=== PATIENT | female | born 1950 | race Caucasian/White ===

== ENCOUNTER 2016-11-10 21:53 | Emergency (ER) | payer OTHER ==
[2016-11-10 21:58] VITALS: BP 135/81; PULSE 71; TEMP 98.6; BMI 26.2
--- NOTE | 2016-11-10 22:22 | PDOC ---
History of Present Illness - General Chief Complaint: Bite Stated Complaint: CAT BITE R HAND Time Seen by Provider: 11/10/16 21:56 - History of Present Illness Initial Comments: This otherwise healthy 66-year-old presents with a several hour history of right hand cat bite. Patient states that she was bitten by her own cat (which is up-to-date on immunizations) a few hours prior to presentation when the cat was hungry and dinner was delayed. Minimal bleeding from the puncture wound on the dorsum of her right hand. Over the last few hours, the area has become mildly swollen, more painful and area of redness has increased. No fever/ chills or red streaking. No previous history of infected cat bites or other skin infection. No history of poor wound healing or resistant organism colonization/infection. No known medication ALLERGIES On no medications Past History - Past Medical History Allergies/Adverse Reactions: Allergies Allergy/AdvReac Type Severity Reaction Status Date / Time No Known Allergies Allergy Verified 04/16/11 08:51 Home Medications: Ambulatory Orders Amox-Tr/K Cl [Augmentin - 875Mg Tablet] 1 tab PO BID #10 tablet 11/10/16 Anemia: No Asthma: No Cancer: No Cardiac Disorders: No CVA: No COPD: No CHF: No Dementia: No Diabetes: No GI Disorders: No Disorders: No HTN: No Hypercholesterolemia: No Liver Disease: No Seizures: No Thyroid Disease: No - Surgical History Abdominal Surgery: No Appendectomy: No Cardiac Surgery: No Cholecystectomy: No Lung Surgery: No Neurologic Surgery: No Orthopedic Surgery: No - Immunization History Td Vaccination: Yes Immunization Up to Date: Yes - Psycho/Social/Smoking Cessation Hx Anxiety: No Suicidal Ideation: No Smoking Status: No Smoking History: Unknown if ever smoked Have you smoked in the past 12 months: No Number of Cigarettes Smoked Daily: 0 Information on smoking cessation initiated: No Hx Alcohol Use: No Drug/Substance Use Hx: No Substance Use Type: None Hx Substance Use Treatment: No Review of Systems - Review of Systems Able to Perform ROS?: Yes Comments:: 12 point review of systems is negative except for what is noted in the history of present illness *Physical Exam - Vital Signs Last Vital Signs Temp Pulse Resp BP Pulse Ox 98.6 F 71 14 135/81 98 11/10/16 21:54 11/10/16 21:54 11/10/16 21:54 11/10/16 21:54 11/10/16 21:54 - Physical Exam Comments: GENERAL: Adult female, alert and oriented 3, in no acute distress HEAD: Normal with no signs of trauma. EYES: PERRLA, EOMI, sclera anicteric, conjunctiva clear. ENT: Ears normal, nares patent, oropharynx clear without exudates. Dry mucous membranes. NECK: Normal range of motion, supple without lymphadenopathy, JVD, or masses. LUNGS: Breath sounds equal, clear to auscultation bilaterally. No wheezes, and no crackles. HEART:Regular rate and rhythm, normal S1 and S2 without murmur, rub or gallop. ABDOMEN:.normal bowel sounds No guarding,tenderness or rebound.No masses No distention. EXTREMITIES: Right upper extremity Dorsal aspect hand:2.5 cm diameter erythematous, mildly edematous, mildly tender area surrounding central puncture wound No lymphangitic streaking /no pain on active or passive motion of fingers NEUROLOGICAL: Cranial nerves II through XII grossly intact. Normal speech. No focal neurological deficits. MUSCULOSKELETAL: Back non-tender to palpation, no CVA tenderness Progress Note - Progress Note Progress Note: Clinical presentation most consistent with early cellulitis right hand secondary to cat bite. Patient has no known ALLERGIES and will be started on Augmentin 875/125 twice a day. First dose will be given here in the emergency room. Patient advised to take Augmentin with meals. She should return to the emergency room if she has worsening pain/swelling/ redness or noted any red streaking up her arm. Also, the patient develops fever /chills, she should return to the ER. She should follow-up with within the next week. *DC/Admit/Observation/Transfer Diagnosis at time of Disposition: Cat bite of hand Qualifiers: Encounter type: initial encounter Laterality: right Qualified Code(s): S61.451A - Open bite of right hand, initial encounter - Discharge Dispostion Disposition: HOME Condition at time of disposition: Stable - Prescriptions Prescriptions: Amox-Tr/K Cl [Augmentin - 875Mg Tablet] 1 tab PO BID #10 tablet - Referrals Referrals: Douglas Kelley MD [Primary Care Provider] - - Patient Instructions Printed Discharge Instructions: DI for Cat Bite Additional Instructions: Augmentin 875/125 twice a day for 5 days (take with food) Return to ER if you have worsening swelling/redness/pain or develop fever Follow-up with Dr. Kelley within the next week
[2016-11-10] MEDS ORDERED: AMOX TR/POT CLAV 875MG/125MG TABLETS (FP) PO ONE (22:33)
[2016-11-10] MEDS ORDERED: AMOX TR/POT CLAV 875MG/125MG TABLETS (FP) ONE (22:36)
== END 2016-11-10 22:39 | disposition home or self-care (01) ==
LOC: FER 21:53
DX: S61.451A Open bite of right hand, initial encounter (principal); W55.01XA Bitten by cat, initial encounter; Y93.9 Activity, unspecified; Y92.009 Unspecified place in unspecified non-institutional (private) residence as the place of occurrence of the external cause
CPT/HCPCS: 99282-25

== ENCOUNTER 2019-01-05 11:37 | Emergency (ER) | payer OTHER ==
--- NOTE | 2019-01-05 12:04 | PDOC ---
History of Present Illness - General History Source: Patient Exam Limitations: No Limitations - History of Present Illness Initial Comments: 68 year old female with PMH mitral valve prolapse presented to ED for right ankle pain/swelling/deformity s/p fall down 7 steps today. Pt reported that she was walking down a 14 stair flight of steps, when she misstepped, lost her footing, and fell down 7 stairs, until she hit the bottom stair directly on her bottom. She denied ability to bear weight or ambulate s/p event. She denied numbness, tingling, weakness, head injury, LOC, vomiting, chest pain, shortness of breath, abdominal pain, neck pain, back pain, upper extremity pain. She admitted to mild right hip pain, but reported most of her pain is in her ankle. Pt denied history of orthopedic surgery in the RLE. Pt reported last meal was 0900 today. PCP: [facility]: [place] <Lu Richards - Last Filed: 01/06/19 09:37> <Mary Celaya - Last Filed: 01/06/19 09:57> - General Chief Complaint: Injury Stated Complaint: ANKLE INJURY Time Seen by Provider: 01/05/19 12:04 Past History - Immunization History Td Vaccination: Yes Immunization Up to Date: Yes - Psycho Social/Smoking Cessation Hx Smoking Status: No Smoking History: Unknown if ever smoked Have you smoked in the past 12 months: No Number of Cigarettes Smoked Daily: 0 Hx Alcohol Use: No Drug/Substance Use Hx: No Substance Use Type: None Hx Substance Use Treatment: No <Lu Richards - Last Filed: 01/06/19 09:37> <Mary Celaya - Last Filed: 01/06/19 09:57> - Past Medical History Allergies/Adverse Reactions: Allergies Allergy/AdvReac Type Severity Reaction Status Date / Time No Known Allergies Allergy Verified 04/16/11 08:51 Home Medications: Ambulatory Orders Oxycodone HCl 10 mg PO QID PRN #12 tablet MDD 4 01/05/19 Review of Systems - Review of Systems Able to Perform ROS?: Yes Comments:: ROS General: denied fever, chills, generalized weakness. HEENT: denied sore throat, rhinorrhea, ear pain. Cardiovascular: denied chest pain, palpitations, syncope, diaphoresis. Respiratory: denied shortness of breath, cough, sputum production, hemoptysis. Gastrointestinal: denied abdominal pain, nausea, vomiting, diarrhea, constipation, blood in stool. Genitourinary: denied dysuria, increased urinary frequency, hematuria, urinary incontinence, flank pain. Back: denied back pain. Musculoskeletal: admitted to ankle pain, ankle swelling. denied muscle pain. Neurological: denied headache, dizziness, numbness, tingling, weakness. Integumentary: denied rash, laceration, abrasion. Hematologic/Lymphatic: denied bruising or bleeding. PE Constitutional: Well-nourished, Well-developed, appearing stated age. Airway: intact Breathing: bilateral breath sounds Circulation: 2+ carotid pulse B/L HEENT: head is normocephalic, atraumatic. No facial bones tenderness to palpation. No ramos sign. No raccoon eyes. EOMI. PERRLA. Neck: supple. Full ROM. no midline c-spine tenderness to palpation. No step offs. Cardiovascular: regular heart rhythm. no murmurs. no pericardial friction rub. Chest wall: no seatbelt sign. No tenderness to palpation of anterior chest wall. No deformity to anterior chest wall. Respiratory: clear to auscultation bilaterally. no crackles, rhonchi or wheezing. no stridor. Gastrointestinal: soft, nontender. normal bowel sounds. no rebound, guarding, masses. No ecchymoses. Back: no midline T-spine or L-spine tenderness to palpation. No step offs. Pelvis: No hip tenderness to palpation. RLE held in external rotation. Severe tenderness to palpation of right medial malleolus. 2+ DSP bilaterally. swelling and deformity noted to right ankle. Extremities: peripheral pulses intact. no lower extremity edema. Neurological: CN 2-12 grossly intact. moves all four extremities. Psych: awake, alert, oriented x3. follows commands. answers questions appropriately. <Lu Richards - Last Filed: 01/06/19 09:37> *Physical Exam - Vital Signs Last Vital Signs Temp Pulse Resp BP Pulse Ox 98.7 F 80 18 136/74 99 01/05/19 19:24 01/05/19 19:24 01/05/19 19:24 01/05/19 19:24 01/05/19 19:24 <Mary Celaya - Last Filed: 01/06/19 09:57> Procedures - Splinting Splint Location: Right: Ankle Pre-Proc Neuro Vasc Exam: normal Hand-Made Type: orthoglass Splint Type: Yes: Posterior (and U-splint) Post-Proc Neuro Vasc Exam: normal Ricardo Bandage: yes Sling: No Complications: No Post splint xray: Yes Good repositioning: Yes <Lu Richards - Last Filed: 01/06/19 09:37> ED Treatment Course - LABORATORY CBC & Chemistry Diagram: 01/05/19 12:19 01/05/19 12:19 <Lu Richards - Last Filed: 01/06/19 09:37> - LABORATORY CBC & Chemistry Diagram: 01/05/19 12:19 01/05/19 12:19 - ADDITIONAL ORDERS Additional order review: 01/05/19 12:19 RBC 4.58 MCV 86.4 MCHC 32.7 RDW 13.6 MPV 8.2 Neutrophils % 75.8 Lymphocytes % 15.1 Monocytes % 7.5 Eosinophils % 1.2 Basophils % 0.4 - Medications Given in the ED: ED Medications Discontinued Medications Generic Name Dose Route Start Last Admin Trade Name Darynq PRN Reason Stop Dose Admin Hydromorphone HCl 1 mg 01/05/19 14:08 01/05/19 14:37 Dilaudid Injection - IVPUSH 01/05/19 14:09 1 mg ONCE ONE Administration Hydromorphone HCl 1 mg 01/05/19 15:41 01/05/19 16:27 Dilaudid Injection - IVPUSH 01/05/19 15:42 Not Given ONCE ONE Hydromorphone HCl 1 mg 01/05/19 17:09 01/05/19 17:11 Dilaudid Injection - IVPUSH 01/05/19 17:10 1 mg ONCE ONE Administration Sodium Chloride 1,000 mls @ 1,000 mls/hr 01/05/19 12:13 01/05/19 12:29 Normal Saline - IV 01/05/19 13:12 1,000 mls/hr ASDIR STA Administration Lidocaine HCl 100 mg 01/05/19 15:39 01/05/19 17:07 Xylocaine 2% SQ 01/05/19 15:40 100 mg ONCE ONE Administration Morphine Sulfate 4 mg 01/05/19 12:10 01/05/19 12:25 Morphine Injection - IVPUSH 01/05/19 12:11 4 mg ONCE ONE Administration Ondansetron HCl 4 mg 01/05/19 19:18 01/05/19 19:23 Zofran Injection IVPUSH 01/05/19 19:19 4 mg ONCE ONE Administration <Mary Celaya - Last Filed: 01/06/19 09:57> Medical Decision Making - Medical Decision Making 68 year old female with above PMH presented to ED for right ankle and right hip pain s/p fall down 7 stairs. Initial Vital Signs Temp Pulse Resp BP Pulse Ox 98.2 F 88 19 153/89 99 01/05/19 12:04 01/05/19 12:04 01/05/19 12:04 01/05/19 12:04 01/05/19 12:04 Afebrile. No tachycardia. No tachypnea. Hypertensive. No hypoxia on room air. Labs ordered: CBC, CMP, T&S, coags, UA/UC Imaging ordered: CXR, pelvis XR, right knee XR, right tib/fib XR, right ankle XR , right femur XR Medications ordered: morphine 4 mg IV once, normal saline bolus 1000 cc once EKG performed at 1210: rate 77, regular rhythm, normal intervals, no acute ST changes. 01/05/19 13:02 CMP Sodium 138 mmol/L (136-145) 01/05/19 12:19 Potassium 4.6 mmol/L (3.5-5.1) 01/05/19 12:19 Chloride 104 mmol/L (98-107) 01/05/19 12:19 Carbon Dioxide 29 mmol/L (21-32) 01/05/19 12:19 Anion Gap 5 MMOL/L (8-16) L 01/05/19 12:19 BUN 14.0 mg/dL (7-18) 01/05/19 12:19 Creatinine 0.6 mg/dL (0.55-1.3) 01/05/19 12:19 Est GFR (CKD-EPI)AfAm 109.31 01/05/19 12:19 Est GFR (CKD-EPI)NonAf 94.32 01/05/19 12:19 Random Glucose 106 mg/dL (74-106) 01/05/19 12:19 Calcium 9.0 mg/dL (8.5-10.1) 01/05/19 12:19 Total Bilirubin 0.2 mg/dL (0.2-1) 01/05/19 12:19 AST 20 U/L (15-37) 01/05/19 12:19 ALT 31 U/L (13-61) 01/05/19 12:19 Alkaline Phosphatase 124 U/L (45-117) H 01/05/19 12:19 Total Protein 7.1 g/dl (6.4-8.2) 01/05/19 12:19 Albumin 3.6 g/dl (3.4-5.0) 01/05/19 12:19 No electrolyte abnormalities. No SHASHI. No transaminitis. 01/05/19 13:07 CBC WBC 15.5 K/mm3 (4.0-10.0) H 01/05/19 12:19 RBC 4.58 M/mm3 (3.60-5.2) 01/05/19 12:19 Hgb 13.0 GM/dL (10.7-15.3) 01/05/19 12:19 Hct 39.6 % (32.4-45.2) 01/05/19 12:19 MCV 86.4 fl (80-96) 01/05/19 12:19 MCH 28.3 pg (25.7-33.7) 01/05/19 12:19 MCHC 32.7 g/dl (32.0-36.0) 01/05/19 12: RDW 13.6 % (11.6-15.6) 01/05/19 12:19 Plt Count 364 K/MM3 (134-434) 01/05/19 12:19 MPV 8.2 fl (7.5-11.1) 01/05/19 12:19 Absolute Neuts (auto) 11.8 K/mm3 (1.5-8.0) H 01/05/19 12:19 Neutrophils % 75.8 % (42.8-82.8) 01/05/19 12:19 Lymphocytes % 15.1 % (8-40) 01/05/19 12:19 Monocytes % 7.5 % (3.8-10.2) 01/05/19 12:19 Eosinophils % 1.2 % (0-4.5) 01/05/19 12:19 Basophils % 0.4 % (0-2.0) 01/05/19 12:19 Nucleated RBC % 0 % (0-0) 01/05/19 12:19 Leukocytosis with left shift. -Pt denied any history of cough, dysuria, fever, vomiting, diarrhea, rhinorrhea , congestion No anemia. 01/05/19 13:13 XR shows right distal fibula fracture. -Pending official reports Dr. Hoover/[facility] office paged. 01/05/19 13:27 Dr. Hoover recommended reduction, reported he has surgery in 1 hour, will call back to report on if Dr. Bradshaw will be able to come sooner. Pt informed of results and need for orthopedic consultation. She reported understanding and agreed with plan for care. Pt refused cole catheter, reported she prefers to sit on a bed rodriguez. 01/05/19 13:32 Official Right Femur XR report: Name: [facility] DEPARTMENT OF RADIOLOGY Phys : Lu Richards RESIDENT : 1950 Age: 68 Sex: F [facility] Acct: [id number] Loc: [address] Exam Date: 01/05/19 Status: [place] [address] Unit Number: [id number] ACCESSION # : [id number] EXAM#: TYPE/EXAM: RESULT: [id number] RAD/PELVIS 1108- 0067 RAD/FEMUR-RIGHT Status post fall. Single AP of the pelvis. Right femur 2 views. No acute bony abnormalities are seen. Symmetrical articulation of the hip joints. Normal bony trabecular pattern is seen in proximal femur bilaterally. Symmetrical SI joints. No evidence of widening of the symphysis pubis. L4-L5 disc space narrowing. Impression. The visual osseous structures appear intact, no acute bony abnormalities are seen.. Reported By: Zane Heredia MD 01/05/19 1321 Official CXR report: Name: [facility] DEPARTMENT OF RADIOLOGY Phys: Lu Richards RESIDENT : 1950 Age: 68 Sex: F [facility] Acct: [id number] Loc: [address] Exam Date: 01/05/19 Status: [place] [address] Unit Number: [id number] EXAM#: TYPE/EXAM: RESULT: [id number] RAD/CHEST PA LAT Status post fall. Single semierect AP view of the chest compared with December 15, 2010. No evidence of widening of the superior mediastinum. Mildly uncoiled thoracic aorta. The cardiac silhouette is not enlarged. Elevated right diaphragm. The lungs are well aerated without evidence of a pulmonary infiltrates, atelectasis. No evidence of blunting of the costophrenic angles. No pneumothorax, or large pleural effusion is seen. Intact visualized osseous structures. No evidence of bulky hilar adenopathy. Impression. No evidence of active pulmonary disease. Reported By: Zane Heredia MD 01/05/19 1325 Official pelvis report: Name: [facility] DEPARTMENT OF RADIOLOGY Phys: Lu Richards RESIDENT : 1950 Age: 68 Sex: F [facility] Acct: [id number] Loc: [facility] [address] [place] [address] Exam Date: 01/05/19 Status: [facility] [place] [address] Unit Number: [id number] EXAM#: TYPE/EXAM: RESULT: [id number] RAD/PELVIS [id number] RAD/FEMUR- RIGHT Status post fall. Single AP of the pelvis. Right femur 2 views. No acute bony abnormalities are seen. Symmetrical articulation of the hip joints. Normal bony trabecular pattern is seen in proximal femur bilaterally. Symmetrical SI joints. No evidence of widening of the symphysis pubis. L4-L5 disc space narrowing. Impression. The visual osseous structures appear intact, no acute bony abnormalities are seen.. Reported By: Zane Heredia MD 01/05/19 1321 Official Right Knee XR report: Name: [facility] DEPARTMENT OF RADIOLOGY Phys: Lu Richards RESIDENT : 1950 Age: 68 Sex: F [facility] Acct: [id number] Loc: [address] Exam Date: 01/05/19 Status: [place] [address] Unit Number: [id number] ACCESSION # : [id number] EXAM#: TYPE/EXAM: RESULT: [id number] RAD/KNEE 3 POS-RIGHT Status post fall. Single oblique x-ray of the right knee. The visual osseous structures appear intact. No acute fracture is seen within limitation of examination. Reported By: Zane Heredia MD 01/05/19 1323 01/05/19 14:20 Dr. Hoover reported he is still awaiting call back from Dr. Bradshaw. Pt reported increasing pain. Medications ordered: Dilaudid 1 mg IV once 01/05/19 14:54 Urine Test Results Urine Color Yellow 01/05/19 14:29 Urine Appearance Clear 01/05/19 14:29 Urine pH 6.5 (5.0-8.0) 01/05/19 14:29 Ur Specific Dunlap 1.020 (1.010-1.035) 01/05/19 14:29 Urine Protein Negative (NEGATIVE) 01/05/19 14:29 Urine Glucose (UA) Negative (NEGATIVE) 01/05/19 14:29 Urine Ketones Negative (NEGATIVE) 01/05/19 14:29 Urine Blood Negative (NEGATIVE) 01/05/19 14:29 Urine Nitrite Negative (NEGATIVE) 01/05/19 14:29 Urine Bilirubin Negative (NEGATIVE) 01/05/19 14:29 Ur Leukocyte Esterase 1+ (NEGATIVE) H 01/05/19 14:29 WBC 6 Asymptomatic No UTI 01/05/19 16:14 Oumou Medina in ED, pt refused to have PA reduce her joint. PA is contacting Dr. Bradshaw. 01/05/19 17:24 After being informed she will need to wait for either surgeon to become available and the likelihood of a successful reduction decreases with time, pt now is willing to have ankle reduced by PA. 01/05/19 17:43 Ankle reduced by PA after intrarticular lidocaine block - without complications , pt tolerated procedure well. Pt placed in posterior leg splint and U-splint by PA and myself - see procedure note. Pt given crutches and education for use of crutches. Post-reduction films ordered. Pt to follow up in Office [facility], non-weightbearing. Pt reported she would like to take ibuprofen, but will take a few oxycodones for if she may need them in the night. 01/05/19 18:54 Post-reduction films seen by Ortho, who recommended discharge. Pt ambulated well with crutches. Pt discharged. <Lu Richards - Last Filed: 01/06/19 09:37> Discharge - Discharge Information Problems reviewed: Yes - Admission No <Lu Richards - Last Filed: 01/06/19 09:37> <Mary Celaya - Last Filed: 01/06/19 09:57> - Discharge Information Clinical Impression/Diagnosis: Fracture of distal end of fibula Condition: Improved Disposition: HOME - Additional Discharge Information Prescriptions: Oxycodone HCl 10 mg PO QID PRN #12 tablet MDD 4 PRN Reason: Severe Pain - Follow up/Referral Referrals: Kvng Hoover MD [Staff Physician] - Douglas Kelley MD [Staff Physician] - - Patient Discharge Instructions Patient Printed Discharge Instructions: DI for Ankle Fracture, How to Prevent Falls Additional Instructions: Follow up with Dr. Hoover office Tuesday. Do not bear weight. use your crutches Take ibuprofen over the counter for pain as needed. Take as advised on label. I have sent a prescription for OXYCODONE to help you with pain should you need it. Take Ibuprofen first and if needed then take Percocet. Take as advised on label. Please take one tablet of OXYCODONE every 6 hours, as needed for SEVERE pain. Please do not take this medication unless you absolutely need it, it is very addictive. Please do not drive, operate heavy machinery or make important decisions while on this medication, it can cloud your judgement. this can also cause constipation so make sure to stay hydrated and use stool softener as needed. Follow up with your primary care doctor within 3 days so they are aware of your condition. Return to the Emergency Department for chest pain, shortness of breath, increasing pain, numbness, tingling, or any other new, worsening or concerning symptoms. - Post Discharge Activity Work/Back to School Note: Back to Work
[2019-01-05 12:06] VITALS: BMI 25.0
[2019-01-05] MEDS ORDERED: morphine CARPU-JECT 4 MG/1 ML DISP.SYRIN IVPUSH ONE (12:10)
[2019-01-05] MEDS ORDERED: SODIUM CHLORIDE 1,000 ML IV STA (12:13)
[2019-01-05] MEDS ORDERED: morphine SULFATE 4 MG/ML VIAL ONE (12:13)
[2019-01-05 12:34] LABS: BASO % 0.4 % (0-2.0); EOS % 1.2 % (0-4.5); HEMATOCRIT 39.6 % (32.4-45.2); LYMPH % 15.1 % (8-40); MCH 28.3 pg (25.7-33.7); MCHC 32.7 g/dl (32.0-36.0); MEAN CELL VOLUME 86.4 fl (80-96); MEAN PLT VOLUME 8.2 fl (7.5-11.1); MONO % 7.5 % (3.8-10.2); NEUT % 75.8 % (42.8-82.8); PLATELET COUNT 364 K/MM3 (134-434); RBC 4.58 M/mm3 (3.60-5.2); RDW 13.6 % (11.6-15.6); WHITE BLOOD COUNT 15.5 K/mm3 (4.0-10.0)
[2019-01-05 12:57] LABS: ALBUMIN 3.6 g/dl (3.4-5.0); BILIRUBIN,TOTAL 0.2 mg/dL (0.2-1); CREATININE 0.6 mg/dL (0.55-1.3); POTASSIUM 4.6 mmol/L (3.5-5.1); TOT PROT 7.1 g/dl (6.4-8.2)
[2019-01-05 12:58] LABS: INR 1.04 (0.83-1.09); PROTHROMBIN TIME (PATIENT) 12.3 SEC (9.7-13.0)
--- NOTE | 2019-01-05 13:13 | PDOC ---
Documentation entered by Lina Arana SCRIBE, acting as scribe for Mary Celaya MD. Mary Celaya MD: This documentation has been prepared by the Sumit luong Nirvannie, SCRIBE, under my direction and personally reviewed by me in its entirety. I confirm that the documentation accurately reflects all work, treatment, procedures, and medical decision making performed by me. Attending Attestation - Resident Resident Name: Lu Richards - ED Attending Attestation I have performed the following: I have examined & evaluated the patient, The case was reviewed & discussed with the resident, I agree w/resident's findings & plan - HPI HPI: 01/05/19 13:11 68-year-old female with history of mitral valve prolapse presenting with right ankle pain after fall from stairs she was walking down 14 steps and about chcf lost her footing and tripped. c/o of right ankle pain and swelling and unable to ambulate. - Physicial Exam PE: 01/05/19 14:17 Physical exam agree with resident note. Limb length is preserved, symmetric lower extremities. No proximal fibula tenderness on the right. +deformity to right ankle, on medial side. Right medial ankle with ecchymosis swelling and tenderness noted, right lateral malleolus also tender to palpation. No crepitus. 5/5 plantar and dorsiflexion, sensation intact in the L5 and S1 distribution. Able to wiggle toes. Soft compartments. 01/06/19 09:56 - Medical Decision Making 01/05/19 13:12 Vital Signs Temp Pulse Resp BP Pulse Ox 98.2 F 88 19 153/89 99 01/05/19 12:04 01/05/19 12:04 01/05/19 12:04 01/05/19 12:04 01/05/19 12:04 Differential diagnosis, ankle sprain, ankle fracture, contusion. X-ray with distal right fibula fracture with disruption of the ankle mortise. No tibia fracture is noted. Patient is unable to ambulate, will call out to orthopedics team for consultation, she has previously seen Dr. Mckee 01/05/19 14:[address] Hoover - will be seen by BLANQUITA Spaulding for closed reduction. will come to do proc sedation, reduce ankle and splint. analgesia in the mean time with morphine/dilaudid, resting and icing/elevating ankle. pt agreeable to plan and management. Will discharge patient with a short course of opiates. Went over the risks of the medication. Advised patient to not mix with other products containing acetaminophen, to not combine with alcohol, or other illicit drugs, to not drive or operate machinery, and to refrain from any activity that will require complete attention while taking this medication. ankle reduced at bedside with local block with Chelly, post red xray appropriate and improved alignment, less tenting on medial side. short leg applied, will f/u in 3 days on tuesday next week to plan for operative management. f/u Dr Hoover next week splinted, crutches, nonweight bearing. 01/05/19 18:59 01/06/19 09:55 Discharge - Discharge Information Problems reviewed: Yes Clinical Impression/Diagnosis: Fracture of distal end of fibula Condition: Improved Disposition: HOME - Admission No - Additional Discharge Information Prescriptions: Oxycodone HCl 10 mg PO QID PRN #12 tablet MDD 4 PRN Reason: Severe Pain - Follow up/Referral Referrals: Douglas Kelley MD [Staff Physician] - Kvng Hoover MD [Staff Physician] - - Patient Discharge Instructions Patient Printed Discharge Instructions: DI for Ankle Fracture, How to Prevent Falls Additional Instructions: Follow up with Dr. Hoover office Tuesday. Do not bear weight. use your crutches Take ibuprofen over the counter for pain as needed. Take as advised on label. I have sent a prescription for OXYCODONE to help you with pain should you need it. Take Ibuprofen first and if needed then take Percocet. Take as advised on label. Please take one tablet of OXYCODONE every 6 hours, as needed for SEVERE pain. Please do not take this medication unless you absolutely need it, it is very addictive. Please do not drive, operate heavy machinery or make important decisions while on this medication, it can cloud your judgement. this can also cause constipation so make sure to stay hydrated and use stool softener as needed. Follow up with your primary care doctor within 3 days so they are aware of your condition. Return to the Emergency Department for chest pain, shortness of breath, increasing pain, numbness, tingling, or any other new, worsening or concerning symptoms. - Post Discharge Activity Work/Back to School Note: Back to Work
[2019-01-05] MEDS ORDERED: HYDROmorphone HCL CARPU-JECT 2 MG/1 ML DISP.SYRIN IVPUSH ONE ×3 (14:08→17:09)
[2019-01-05] MEDS ORDERED: HYDROmorphone HCl 2 MG/ML VIAL ONE ×3 (14:21→17:09)
[2019-01-05 14:50] LABS: HYALINE CASTS 4 /lpf (0-8); PH,URINE 6.5 (5.0-8.0); URINE APPEARANCE CLEAR; URINE BACTERIA 2.1 /hpf (NEGATIVE); URINE BILIRUBIN NEGATIVE (NEGATIVE); URINE COLOR YELLOW; URINE GLUCOSE (UA) NEGATIVE (NEGATIVE); URINE KETONE NEGATIVE (NEGATIVE); URINE LEUK ESTERASE 1+ (NEGATIVE); URINE NITRITE NEGATIVE (NEGATIVE); URINE PROTEIN NEGATIVE (NEGATIVE); URINE RBC 2 /hpf (0-4); URINE UROBILINOGEN 0.2 mg/dL (0.2-1.0); URINE WBC 6 /hpf (0-5)
[2019-01-05 15:03] LABS: ACTIVATED PTT 29.6 SECONDS (25.2-36.5)
[2019-01-05] MEDS ORDERED: LIDOCAINE HCL 2% (50ML VIAL) SQ ONE (15:39)
[2019-01-05] MEDS ORDERED: LIDOCAINE HCL 2% (20ML MULTI-DOSE VIAL) NR ONE (16:07)
--- NOTE | 2019-01-05 16:24 | CON.ORTH ---
Consult Consult Specialty:: Orthopedics Reason for Consultation:: Right ankle fracture - History of Present Illness Chief Complaint: Right ankle pain s/p mechanical fall History of Present Illness: This is a 68 yo F with PMHx of MVP who presented to the ED this morning for right ankle pain and deformity s/p mechanical fall down a flight of stairs prior to presentation. She was unable to bear weight on her right foot. Patient ambulates without assistance at baseline. She notes being seen in [facility] ED a few weeks ago after hitting same lower leg on concrete step. XR confirmed no fracture and patient states pain resolved on its own. Denies any numbness, tingling to toes, previous injury to this ankle or any other symptoms. - History Source History Provided By: Patient Limitations to Obtaining History: No Limitations - Alcohol/Substance Use Hx Alcohol Use: No - Smoking History Smoking history: Unknown if ever smoked Have you smoked in the past 12 months: No Aproximately how many cigarettes per day: 0 Home Medications - Allergies Allergies/Adverse Reactions: Allergies Allergy/AdvReac Type Severity Reaction Status Date / Time No Known Allergies Allergy Verified 04/16/11 08:51 - Home Medications Home Medications: Ambulatory Orders Oxycodone HCl 10 mg PO QID PRN #12 tablet MDD 4 01/05/19 Review of Systems - Review of Systems Musculoskeletal: reports: Other (Right ankle pain and swelling) Physical Exam for Ortho Vital Signs: Vital Signs Temperature 98.6 F 01/05/19 14:25 Pulse Rate 75 01/05/19 14:25 Respiratory Rate 19 01/05/19 14:25 Blood Pressure 146/78 01/05/19 14:25 O2 Sat by Pulse Oximetry (%) 99 01/05/19 14:25 Labs: CBC, BMP 01/05/19 12:19 01/05/19 12:19 INR, PTT INR 1.04 (0.83-1.09) 01/05/19 12:19 - Lower Extremity Ankle: Yes: Right (Diffuse swelling and echymosis about the ankle and foot. Notable deformity. Tenderness throughout the ankle. No calf tenderness. NVID. ) Imaging - Results X-ray: Pending, Image Reviewed (Right ankle AP and Lateral views show mildly displaced distal fibular fracture and medial malleolus fracture with disruption of mortise.) Problem List - Problems (1) Fracture of distal end of fibula Code(s): S82.839A - OTH FRACTURE OF UPPER AND LOWER END OF UNSP FIBULA, INIT Assessment/Plan A: Right unstable ankle fracture P: XR shows right distal fibular fracture and medial malleolus fracture with disruption of mortise I explained to the patient that these findings are consistent with an unstable ankle fracture I discussed the importance of a timely reduction to ensure successful reduction and acceptable alignment Patient agreed and signed consent for closed reduction of the right ankle in the ED as below Post-reduction XR showed satisfactory alignment She was instructed to not bear any weight on her right leg, keep leg elevated to reduce swelling and NSAIDs for pain Crutches given to her in the ED She will f/u with Dr. Hoover in the office on Tuesday to discuss possible surgery Procedure: Under sterile procedure, 18 cc of lidocane were injected into the right ankle joint. Patient's right LE was hung by gravity and a closed reduction was performed. Patient was then placed in a posterior and U-splint.
[2019-01-05] MEDS ORDERED: ONDANSETRON 4 MG/2 ML VIAL ONE (19:18)
[2019-01-05] MEDS ORDERED: ONDANSETRON 4 MG/2 ML VIAL IVPUSH ONE (19:18)
[2019-01-05 19:25] VITALS: BP 136/74; PULSE 80; TEMP 98.7
--- NOTE | 2019-01-06 11:31 | EKG ---
Test Reason : Blood Pressure : / mmHG Vent. Rate : 077 BPM Atrial Rate : 077 BPM P-R Int : 174 ms QRS Dur : 080 ms QT Int : 386 ms P-R-T Axes : 054 -28 038 degrees QTc Int : 436 ms POOR DATA QUALITY, INTERPRETATION MAY BE ADVERSELY AFFECTED NORMAL SINUS RHYTHM NORMAL ECG NO PREVIOUS ECGS AVAILABLE Confirmed by GUSTAVO HALL MD ([id number]) on 01/06/2019 11:30:45 AM Referred By: Confirmed By:GUSTAVO HALL MD
== END 2019-01-05 19:25 | disposition home or self-care (01) ==
LOC: JER 11:37
PROC: 2W3QX1Z Immobilization of Right Lower Leg using Splint (ICD-10-PCS; principal; 2019-01-05)
PROC: 0QSJXZZ Reposition Right Fibula, External Approach (ICD-10-PCS; 2019-01-05)
PROC: 3E013BZ Introduction of Anesthetic Agent into Subcutaneous Tissue, Percutaneous Approach (ICD-10-PCS; 2019-01-05)
PROC: 3E033NZ Introduction of Analgesics, Hypnotics, Sedatives into Peripheral Vein, Percutaneous Approach (ICD-10-PCS; 2019-01-05)
PROC: 3E033GC Introduction of Other Therapeutic Substance into Peripheral Vein, Percutaneous Approach (ICD-10-PCS; 2019-01-05)
DX: S82.831A Other fracture of upper and lower end of right fibula, initial encounter for closed fracture (principal); W10.8XXA Fall (on) (from) other stairs and steps, initial encounter; Y93.89 Activity, other specified; Y92.038 Other place in apartment as the place of occurrence of the external cause; Y99.8 Other external cause status; I34.1 Nonrheumatic mitral (valve) prolapse
CPT/HCPCS: 36415; 71046-TC-FY; 72170-TC-FY; 73552-TC-RT-FY; 73562-TC-RT-FY; 73590-TC-RT-FY; 73610-TC-RT-FY; 80053; 81003; 85025; 85610; 85730; 86850; 86900; 86901; 87086; 87186; 93005; 93010; 99284-25; J7030